=== PATIENT | male | born 1970 | race Caucasian/White ===

== ENCOUNTER → 2018-08-14 | Outpatient (CLI) | payer BC ==
[~2018-08-14] MED LIST: ADVIL 200MG TA200 MG PO; LISINOPRIL2.5 MG PO
[2018-08-14 10:29] LABS: BASO % 0.6 % (0.0-2.0); EOS # 0.1 (0.0-0.7); EOS % 2.1 % (0-4.0); GRAN # 3.3 (1.4-6.5); GRAN % 62.4 % (42.2-75.2); HEMATOCRIT 42.8 % (42.0-52.0); LYMPH # 1.5 (1.2-3.4); LYMPH % 28.1 % (20.0-51.0); MEAN CELL VOLUME 82 fl (80.0-100.0); MEAN CORPUSCULAR HEMOGLOBIN 29 pg (27.0-31.0); MEAN CORPUSCULAR HGB CONC 35 g/dl (33.0-37.0); MEAN PLATELET VOLUME 10.2 fl (7.4-10.4); MONO # 0.3 (0.1-0.6); MONO % 6.2 % (1.7-9.3); PLATELET COUNT 206 K/mm3 (130-400); RED BLOOD COUNT 5.21 M/mm3 (4.20-5.60); REDCELL DISTRIBUTION WIDTH-CV 13.3 % (11.5-14.5)
[2018-08-14 10:31] LABS: ALANINE AMINOTRANSFERASE 38 U/L (21-72); ALBUMIN 4.4 gm/dL (3.5-5.0); ALKALINE PHOSPHATASE 60 U/L (50-136); ANION GAP 9 mmol/L (7-16); AST,SGOT 31 U/L (15-37); BILIRUBIN,TOTAL 0.9 mg/dL (0.0-1.0); BLOOD UREA NITROGEN 15 mg/dL (9-20); CALCIUM 9.5 mg/dL (8.4-10.2); CARBON DIOXIDE 28 mmol/L (22-30); CHLORIDE 103 mmol/L (98-107); CREATINE KINASE 191 U/L (55-170); CREATININE, serum 1.33 (0.66-1.25); GLUCOSE 105 mg/dL (74-106); POTASSIUM 4.3 mmol/L (3.4-5.0); SODIUM 140 mmol/L (137-145); TOTAL PROTEIN 7.7 gm/dL (6.4-8.2)
[2018-08-14 10:44] LABS: TROPONIN-I < 0.012 ng/mL (0.000-0.035)
== END ==
LOC: COL.LAB 09:57
PROVIDERS: Family Medicine
DX: I10 Essential (primary) hypertension (principal); R07.89 Other chest pain

== ENCOUNTER 2022-01-05 09:46 | Day surgery (SDC) | payer BC ==
[~2022-01-05] VITALS: Ht 185.4 cm; Wt 110.7 kg
[2022-01-05] MEDS ORDERED: NORVASC 10MG10 MG PO (11:23)
[2022-01-05] MEDS ORDERED: PRINZIDE 25 MG-1 TAB PO (11:24)
[2022-01-05 11:41] VITALS: BP 134/71; PULSE 64; TEMP 97.7
[2022-01-05] MEDS ORDERED: NORCO 325 MG-51 TAB PO (12:28)
[2022-01-05 13:15] VITALS: BP 91/43; PULSE 60; TEMP 97.3
--- NOTE | 2022-01-05 13:28 | NUR ---
1315 - PT arrives from PACU w/ Fatemeh RN; monitors applied and vitals obtained. BP is low; per report: PT took BP medication this morning; denies symptoms of hypotension. PT denies pain/nausea, no vomiting. PT provided snack and drink per request; call mast remains within reach. x3 incision sites are clean, dry and intact; covered w/ skin glue. Daughters are present.
[2022-01-05 13:30] VITALS: BP 103/62; PULSE 55
[2022-01-05 13:45] VITALS: BP 116/65; PULSE 56
--- NOTE | 2022-01-05 13:51 | NUR ---
1330 - Vitals obtained. PT denies nausea; he has finished snack and drink. BP continues to rise. Call mast remains within reach. 1345 - VSS. PT expressed desire to be discharged. Call mast remains within reach. Additonal muffin provided; as well as to family.
[2022-01-05 14:00] VITALS: BP 123/72; PULSE 56
--- NOTE | 2022-01-05 14:54 | NUR ---
1400 - VSS. PT was assisted out of bed, before ambulating to bathroom; he voided and then back to bed. IV was discontinued. Catheter tip intact, pressure bandage applied; no redness or swelling noted. DC instructions and educational material reviewed w/ PT who verbalized understanding and signed the related paperwork. Questions answered to PT satisfaction. was contacted in regards to work-release note; then provided to PT. PT refused RN assistance changing into personal clothes; daughter remains present and states she will assist. Call mast remains within reach if needed. 1440 - PT dismissed via wheelchair to PT entrence by Adriana GANT; PT's daughter has DC packet, PT has his personal belongings and was discharged into the care of his daughter, who is driving private car.
== END 2022-01-05 14:45 | disposition home or self-care (01) ==
LOC: SDCO 09:46
DX: K40.90 Unilateral inguinal hernia, without obstruction or gangrene, not specified as recurrent (principal)
CPT/HCPCS: C1781; J0690; J1885; J2405; J2704; J3010; J7120